=== PATIENT | female | born 1950 | race Caucasian/White ===

== ENCOUNTER 2016-07-14 08:28 | Emergency (ER) | payer MEDICARE, BC ==
[2016-07-14 08:34] VITALS: BP 165/84; PULSE 81; RESP 18; TEMP 97.1
[2016-07-14] MEDS ORDERED: DIPH,PERTUS(ACELL)TETVAC-LF 0.5 ML VIAL IM ONE (08:45)
--- NOTE | 2016-07-14 08:57 | ED ---
Fall HPI - General Chief Complaint: Fall Stated Complaint: left jaw pain fell in parking lot Time Seen by Provider: 07/14/16 08:41 Source: patient, RN notes reviewed Mode of arrival: ambulatory Limitations: no limitations - History of Present Illness Initial Comments: This is a 66-year-old female presents emergency Department with chief complaint of a fall. Patient states that she was walking into the hospital states her foot slipped off the curb causing her to slip and fall. Patient states she has an abrasion to bilateral knees, left hand along the MCP region. Patient also states that she hit the left side of her face on the ground. Patient denies any headache, dizziness, neck pain or back pain. Patient states she did not lose consciousness. Patient states that she just has some swelling, achiness the left side of her face. Patient is not taking any blood thinners. Patient states she is unsure when her last tetanus was. Patient has full range of motion of all extremities. - Related Data Home Medications Medication Instructions Recorded Confirmed Atorvastatin [Lipitor] 20 mg PO HS 07/14/15 07/14/16 Multivitamins, Thera [Multivitamin] 1 tab PO DAILY 07/14/16 07/14/16 Allergies Allergy/AdvReac Type Severity Reaction Status Date / Time Penicillins Allergy Rash/Hives Verified 07/14/16 08:49 Review of Systems ROS Statement: Those systems with pertinent positive or pertinent negative responses have been documented in the HPI. ROS Other: All systems not noted in ROS Statement are negative. Past Medical History Past Medical History: Hyperlipidemia History of Any Multi-Drug Resistant Organisms: None Reported Past Surgical History: Section, Tonsillectomy, Tubal Ligation Past Psychological History: No Psychological Hx Reported Smoking Status: Never smoker Past Alcohol Use History: Occasional Past Drug Use History: None Reported General Exam Limitations: no limitations General appearance: alert, in no apparent distress Head exam: Present: atraumatic, normocephalic, normal inspection Eye exam: Present: normal appearance, PERRL, EOMI. Absent: scleral icterus, conjunctival injection, periorbital swelling ENT exam: Present: normal oropharynx, mucous membranes moist, TM's normal bilaterally, normal external ear exam. Absent: normal exam (Mild swelling noted along the left mandible region) Neck exam: Present: normal inspection, full ROM. Absent: tenderness, meningismus, lymphadenopathy Respiratory exam: Present: normal lung sounds bilaterally. Absent: respiratory distress, wheezes, rales, rhonchi, stridor Cardiovascular Exam: Present: regular rate, normal rhythm, normal heart sounds. Absent: systolic murmur, diastolic murmur, rubs, gallop, clicks Extremities exam: Present: other (Small abrasion noted along the left third and fourth MCP region patient has full range of motion neurovascular intact there is 2 small abrasions one on the right knee, 1 left knee patient has full range of motion of all joints with no difficulty and nontender.) Back exam: Present: full ROM. Absent: tenderness Neurological exam: Present: alert, oriented X3, CN II-XII intact, reflexes normal. Absent: motor sensory deficit Skin exam: Present: warm, dry, intact, normal color. Absent: rash Course Vital Signs 07/14/16 08:31 Temperature 97.1 F L Pulse Rate 81 Respiratory 18 Rate Blood Pressure 165/84 O2 Sat by Pulse 99 Oximetry Medical Decision Making - Medical Decision Making 66-year-old female presented emergency department for fall. Patient x-ray shows no acute abnormality. Patient's tetanus was updated. Patient will be discharged. Disposition Clinical Impression: Fall, Multiple abrasions, Facial contusion Disposition: HOME SELF-CARE Condition: Stable Instructions: Contusion in Adults (ED) Additional Instructions: Please return to the Emergency Department if symptoms worsen or any other concerns. Time of Disposition: 09:32
--- NOTE | 2016-07-14 09:30 | XR ---
EXAMINATION TYPE: XR mandible complete DATE OF EXAM: 07/14/2016 9:18 AM COMPARISON: NONE HISTORY: Pain TECHNIQUE: 5 views of the mandible are submitted FINDINGS: Osseous structures are intact. No definite acute fracture or dislocation. IMPRESSION: 1. No acute fracture or dislocation.
== END 2016-07-14 09:40 | disposition home or self-care (01) ==
LOC: EC 08:28
DX: S00.83XA Contusion of other part of head, initial encounter (principal); S80.212A Abrasion, left knee, initial encounter; S80.211A Abrasion, right knee, initial encounter; E78.5 Hyperlipidemia, unspecified; Z23 Encounter for immunization; Z79.899 Other long term (current) drug therapy; Z88.0 Allergy status to penicillin; W01.0XXA Fall on same level from slipping, tripping and stumbling without subsequent striking against object, initial encounter; Y93.01 Activity, walking, marching and hiking; Y92.481 Parking lot as the place of occurrence of the external cause
CPT/HCPCS: 70110; 90471; 90715; 99283

== ENCOUNTER → 2017-04-24 | Outpatient (CLI) | payer MEDICARE, BC ==
--- NOTE | 2017-04-24 10:51 | MM ---
Reason for exam: additional evaluation requested from prior study. Last mammogram was performed 1 year and 3 months ago. History: Patient is postmenopausal and has history of other cancer at age 59. Took hormonal contraceptives for 7 years. Took estrogen for 1 year. Took progesterone for 1 year. Physical Findings: Nurse did not find any significant physical abnormalities on exam. MG 3D Diag Mammo W/Cad SHI Bilateral CC and MLO view(s) were taken. LM and spot compression CC view(s) were taken of the right breast. Prior study comparison: January 11, 2016, right breast MG 3d diag mammo w/cad RT. July 13, 2015, right breast MG 3d work up w/cad RT. The breast tissue is heterogeneously dense. This may lower the sensitivity of mammography. Small nodular asymmetry centrally on the right CC view disperses on spot 3D images. These results were verbally communicated with the patient and result sheet given to the patient on 04/24/17. ASSESSMENT: Negative, BI-RAD 1 RECOMMENDATION: Routine screening mammogram of both breasts in 1 year.
== END | disposition home or self-care (01) ==
LOC: RADMAMWWP 09:30
PROVIDERS: ATTEND Family Medicine
DX: R92.8 Other abnormal and inconclusive findings on diagnostic imaging of breast (principal)
CPT/HCPCS: G0204; G0279

== ENCOUNTER → 2018-07-03 | Outpatient (CLI) | payer MEDICARE, BC ==
--- NOTE | 2018-07-03 12:11 | BD ---
EXAMINATION TYPE: Axial Bone Density DATE OF EXAM: 07/03/2018 COMPARISON: NONE CLINICAL HISTORY: disorder of bone per order. Postmenopausal female. 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 Bone mineral density as measured about the Lumbar spine is: ----- L1-L4(G/cm2): 1.239 T Score Values are as follows: ----- L2: 0.1 ----- L3: 0.3 ----- L4: 1.1 ----- L1-L4:0.5 Bone mineral density about the R hip (g/cm2): 0.896 Bone mineral density about the L hip (g/cm2): 0.833 T Score values are as follow: -----R Neck: -1.0 -----L Neck: -1.5 -----R Total: -0.3 -----L Total: -0.5 IMPRESSION: Osteopenia (T Score between -2.5 and -1) femoral neck level in the left hip. There is slightly increased risk of fracture and the patient may be considered for treatment. Re-Screen 2-5 years. NOTE: T-SCORE=SD OF THE YOUNG ADULT MEAN.
--- NOTE | 2018-07-05 09:17 | MM ---
Reason for exam: screening (asymptomatic). Last mammogram was performed 1 year and 2 months ago. History: Patient is postmenopausal and has history of other cancer at age 59. Took hormonal contraceptives for 7 years. Took estrogen for 1 year. Took progesterone for 1 year. MG 3D Screening Mammo W/Cad Bilateral CC and MLO view(s) were taken. Prior study comparison: April 24, 2017, bilateral MG 3d diag mammo w/cad SHI. January 11, 2016, right breast MG 3d diag mammo w/cad RT. No significant changes when compared with prior studies. ASSESSMENT: Benign, BI-RAD 2 RECOMMENDATION: Routine screening mammogram of both breasts in 1 year.
== END | disposition home or self-care (01) ==
LOC: RADMAMWWP 10:22
PROVIDERS: ATTEND Family Medicine
DX: Z12.31 Encounter for screening mammogram for malignant neoplasm of breast (principal); M85.88 Other specified disorders of bone density and structure, other site
CPT/HCPCS: 77063; 77067; 77080

== ENCOUNTER → 2019-06-10 | Outpatient (CLI) | payer MEDICARE, BC ==
--- NOTE | 2019-06-10 11:48 | FL ---
MODIFIED SWALLOW / DEGLUTITION STUDY DATE OF EXAM: 06/10/2019 CLINICAL HISTORY: 68-year-old female with dysphasia. Coughing and choking with meals. TECHNIQUE: Deglutition study is performed utilizing thin liquid barium and barium thick pudding. COMPARISON: None. Total fluoroscopy time: 48 seconds. Total images: None. Real-time fluoroscopy support was provided to speech pathology. FINDINGS: The oral and pharyngeal phases show satisfactory initiation and propagation with all modalities teste d. There is no evidence of penetration or aspiration with any modality tested. Very mild vallecular r esidual clears with repeat swallow. IMPRESSION: No penetration or aspiration. Please refer to speech therapist notes for further details if necessary.
== END | disposition home or self-care (01) ==
LOC: RADFLMAIN 10:55
PROVIDERS: ATTEND Family Medicine
DX: R13.10 Dysphagia, unspecified (principal)
CPT/HCPCS: 74230

== ENCOUNTER → 2020-03-16 | Outpatient (CLI) | payer MEDICARE, BC ==
--- NOTE | 2020-03-18 11:13 | MM ---
Reason for exam: screening (asymptomatic). Last mammogram was performed 1 year and 8 months ago. History: Patient is postmenopausal and has history of other cancer at age 59. Took hormonal contraceptives for 7 years. Took estrogen for 1 year. Took progesterone for 1 year. Physical Findings: A clinical breast exam by your physician is recommended on an annual basis and results should be correlated with mammographic findings. MG 3D Screening Mammo W/Cad Bilateral CC and MLO view(s) were taken. Prior study comparison: July 03, 2018, bilateral MG 3d screening mammo w/cad. April 24, 2017, bilateral MG 3d diag mammo w/cad SHI. The breast tissue is extremely dense which could obscure a lesion on mammography. No significant changes when compared with prior studies. ASSESSMENT: Benign, BI-RAD 2 RECOMMENDATION: Routine screening mammogram of both breasts in 1 year.
== END | disposition home or self-care (01) ==
LOC: RADMAMWWP 09:13
PROVIDERS: ATTEND Family Medicine
DX: Z12.31 Encounter for screening mammogram for malignant neoplasm of breast (principal)
CPT/HCPCS: 77063; 77067

== ENCOUNTER → 2021-04-22 | Outpatient (CLI) | payer MEDICARE, BC ==
--- NOTE | 2021-04-26 10:51 | MM ---
Reason for exam: screening (asymptomatic). Last mammogram was performed 1 year and 1 month ago. History: Patient is postmenopausal and has history of other cancer at age 59. Took hormonal contraceptives for 7 years. Took estrogen for 1 year. Took progesterone for 1 year. Physical Findings: A clinical breast exam by your physician is recommended on an annual basis and results should be correlated with mammographic findings. MG 3D Screening Mammo W/Cad Bilateral CC and MLO view(s) were taken. Prior study comparison: March 16, 2020, bilateral MG 3d screening mammo w/cad. July 03, 2018, bilateral MG 3d screening mammo w/cad. The breast tissue is heterogeneously dense. This may lower the sensitivity of mammography. There are benign appearing round calcifications in the right breast. Asymmetric breast tissue anterior right MLO view unchanged from 2019. There is no discrete abnormality. ASSESSMENT: Benign, BI-RAD 2 RECOMMENDATION: Routine screening mammogram of both breasts in 1 year.
== END | disposition home or self-care (01) ==
LOC: RADMAMWWP 13:49
PROVIDERS: ATTEND Family Medicine
DX: Z12.31 Encounter for screening mammogram for malignant neoplasm of breast (principal)
CPT/HCPCS: 77063; 77067

== ENCOUNTER → 2022-05-03 | Outpatient (CLI) | payer MEDICARE, BC ==
--- NOTE | 2022-05-04 08:34 | MM ---
Reason for Exam: Screening (asymptomatic). Last screening mammogram was performed 12 month(s) ago. Patient History: Menarche at age 11. First Full-Term at age 25. Postmenopausal. Other cancer, age 59. Patient used Estrogen for 1 year. Patient used Progesterone for 1 year. Patient used Hormonal Contraceptives for 7 years. Paternal aunt had breast cancer, age 70. Paternal aunt had breast cancer, age 70. Risk Values: Indira 5 year model risk: 2.0%. NCI Lifetime model risk: 5.1%. Prior Study Comparison: 07/03/2018 Bilateral Screening Mammogram, [facility]. 03/16/2020 Bilateral Screening Mammogram, [facility]. 04/22/2021 Bilateral Screening Mammogram, [facility]. Tissue Density: The breast tissue is heterogeneously dense. This may lower the sensitivity of mammography. Findings: Analyzed By CAD. There is no suspicious group of microcalcifications or new suspicious mass in either breast. Overall Assessment: Negative, BI-RAD 1 Management: Screening Mammogram of both breasts in 1 year. A clinical breast exam by your physician is recommended on an annual basis and results should be correlated with mammographic findings. Electronically signed and approved by: Suleman Logan M.D. Radiologis
== END | disposition home or self-care (01) ==
LOC: RADMAMWWP 09:39
PROVIDERS: ATTEND Family Medicine
DX: Z12.31 Encounter for screening mammogram for malignant neoplasm of breast (principal); Z80.3 Family history of malignant neoplasm of breast; Z78.0 Asymptomatic menopausal state
CPT/HCPCS: 77063; 77067

== ENCOUNTER → 2022-05-13 | Outpatient (CLI) | payer MEDICARE, BC ==
--- NOTE | 2022-05-13 14:34 | BD ---
EXAMINATION TYPE: Axial Bone Density DATE OF EXAM: 05/13/2022 COMPARISON: 07-03-2018 CLINICAL HISTORY: 71 years year old Female. ICD-10 CODE: Z78.0 Post menopausal Height: 64IN Weight: 157LB FRAX RISK QUESTIONS: Secondary Osteoporosis: RISK FACTORS HISTORY OF: Active: YES Postmenopausal woman: YES Take estrogen and/or progesterone medications: YES, NONE CURRENT How long: A FEW MONTHS MEDICATIONS: Thyroid Medications: Which medication: Levothyroxine How Lon YEARS Additional Medications: CALCIUM, CHOLESTEROL MED Additional History: EXAM MEASUREMENTS: Bone mineral densitometry was performed using the [employer] System. Bone mineral density as measured about the Lumbar spine is: ----- L1-L4(G/cm2): 1.261 T Score Values are as follows: ----- L1: 0.1 ----- L2: 0.6 ----- L3: 0.3 ----- L4: 1.3 ----- L1-L4: 0.7 Bone mineral density has: Increased 1.9% since study of: 07-03-2018 Bone mineral density about the R hip (g/cm2): 0.965 Bone mineral density about the L hip (g/cm2): 0.930 T Score values are as follows: -----R Neck: -1.0 -----L Neck: -1.6 -----R Total: -0.3 -----L Total: -0.6 Bone mineral density has: Decreased -0.8% since study of: 07-03-2018 FRAX%s: The graph provided illustrates a 11% chance for a major osteoporotic fx and a 2% chance for t he hips probability for fx in 10 years time. IMPRESSION: Osteopenia (T Score between -2.5 and -1) remains present. There is slightly increased risk of fracture and the patient may be considered for treatment. Re-Screen 2-5 years. NOTE: T-SCORE=SD OF THE YOUNG ADULT MEAN.
== END | disposition home or self-care (01) ==
LOC: RADBDWWP 11:14
PROVIDERS: ATTEND Family Medicine
DX: M85.89 Other specified disorders of bone density and structure, multiple sites (principal); I49.9 Cardiac arrhythmia, unspecified; Z78.0 Asymptomatic menopausal state
CPT/HCPCS: 77080; 93005

== ENCOUNTER 2022-07-04 01:49 | Observation (INO) | payer MEDICARE, BC ==
--- NOTE | 2022-07-04 02:33 | ED ---
Chest Pain HPI - General Chief Complaint: Chest Pain Stated Complaint: Chest pain Time Seen by Provider: 07/04/22 02:32 Source: patient, RN notes reviewed, old records reviewed Mode of arrival: ambulatory Limitations: no limitations - History of Present Illness Initial Comments: This is a 72-year-old female to the ER today. She presents today for evaluation of chest pain anterior chest pain and heaviness this episode occurred 3 times last night 3 separate issues with heaviness on her chest and some shortness of breath. Patient has had similar pain in the past but nothing this significant nothing that lasted this long. No travel history no sick contacts no fevers increased fatigue patient does have history of high cholesterol MD Complaint: chest pain -: hour(s) Onset: during rest Pain Location: substernal Pain Radiation: none Severity: moderate Severity scale (1-10): 4 Quality: tightness, heaviness Consistency: intermittent, now resolved Improves With: nothing Worsens With: nothing Anginal Symptoms: dyspnea Other Symptoms: palpitations Treatments Prior to Arrival: none - Related Data Home Medications Medication Instructions Recorded Confirmed Atorvastatin [Lipitor] 20 mg PO HS 07/14/15 07/14/16 Multivitamins, Thera [Multivitamin] 1 tab PO DAILY 07/14/16 07/14/16 Allergies Allergy/AdvReac Type Severity Reaction Status Date / Time Penicillins Allergy Rash/Hives Verified 07/14/16 08:49 Review of Systems ROS Statement: Those systems with pertinent positive or pertinent negative responses have been documented in the HPI. ROS Other: All systems not noted in ROS Statement are negative. EKG Findings - EKG Comments: EKG Findings:: EKG is sinus 76 MN 165 QRS 94 QTC 434 Past Medical History Past Medical History: Hyperlipidemia History of Any Multi-Drug Resistant Organisms: None Reported Past Surgical History: Section, Tonsillectomy, Tubal Ligation Past Psychological History: No Psychological Hx Reported Smoking Status: Never smoker Past Alcohol Use History: Occasional Past Drug Use History: None Reported General Exam Limitations: no limitations General appearance: alert, in no apparent distress Head exam: Present: atraumatic, normocephalic, normal inspection Eye exam: Present: normal appearance, PERRL, EOMI. Absent: scleral icterus, conjunctival injection, periorbital swelling ENT exam: Present: normal exam, mucous membranes moist Neck exam: Present: normal inspection. Absent: tenderness, meningismus, lymphadenopathy Respiratory exam: Present: normal lung sounds bilaterally. Absent: respiratory distress, wheezes, rales, rhonchi, stridor Cardiovascular Exam: Present: regular rate, normal rhythm, normal heart sounds. Absent: systolic murmur, diastolic murmur, rubs, gallop, clicks GI/Abdominal exam: Present: soft, normal bowel sounds. Absent: distended, tenderness, guarding, rebound, rigid Extremities exam: Present: normal inspection, full ROM, normal capillary refill. Absent: tenderness, pedal edema, joint swelling, calf tenderness Back exam: Present: normal inspection Neurological exam: Present: alert, oriented X3, CN II-XII intact Psychiatric exam: Present: normal affect, normal mood Skin exam: Present: warm, dry, intact, normal color. Absent: rash Course Vital Signs 07/04/22 07/04/22 01:50 02:20 Temperature 98.4 F Pulse Rate 85 78 Respiratory 16 Rate Blood Pressure 165/94 O2 Sat by Pulse 96 Oximetry - Reevaluation(s) Reevaluation #1: 07/04/22 03:55 Medical records reviewed Reevaluation #2: 07/04/22 03:55 Patient's chest pain is episodic now currently chest pain-free Reevaluation #3: 07/04/22 03:55 Patient informed results questions answered Reevaluation #4: 07/04/22 03:55 Differential Chest Pain: Stable Angina, Unstable Angina, STEMI, NSTEMI Aortic Dissection, Pneumothorax, Musculoskeletal, Esophageal Spasm GERD, Cholecystitis, Pancreatitis, Zoster, this is not meant to be an all-inclusive list. Reevaluation #5: 07/04/22 03:55 Was pt. sent in by a medical professional or institution? @ -no Did you speak to anyone other than the patient for history? @ -no Did you review nursing and triage notes? @ -agree Were old charts reviewed? @ -prior troponin levels Differential Diagnosis? @ -prior EKG interpreted by me (3pts min.)? @ -[none] X-rays interpreted by me (1pt min.)? @ -yes CT interpreted by me (1pt min.)? @ -[none] U/S interpreted by me (1pt. min.)? @ -[none] What testing was considered but not performed? (CT, X-rays, U/S, labs)? Why? @ -none What meds were considered but not given? Why? @ -[none] Did you discuss the management of the patient with other professionals? @ -no Did you reconcile home meds? @ -[none] Was smoking cessation discussed for >3mins.? @ -[none] Was critical care preformed (if so, how long)? @ -[none] Were there social determinants of health that impacted care today? How? (Homelessness, low income, unemployed, alcoholism, drug addiction, transportation, low edu. Level, literacy, decrease access to med. care, residential, rehab)? @ -no Was there de-escalation of care discussed even if they declined? (Discuss DNR or withdrawal of care, Hospice)? @ -no What co-morbidities impacted this encounter? (DM, HTN, Smoking, COPD, CAD, Cancer, CVA, Hep., AIDS, mental health diagnosis, sleep apnea, morbid obesity)? @ -no Was patient admitted / discharged? @ -admit Undiagnosed new problem with uncertain prognosis? @ -[none] Drug Therapy requiring intensive monitoring for toxicity (Heparin, Nitro, Insulin, Cardizem)? @ -[none] Were any procedures done? @ -[none] Diagnosis/symptom? @ -[default] Acute, or Chronic, or Acute on Chronic? @ -[default] Uncomplicated (without systemic symptoms) or Complicated (systemic symptoms)? @ -[default] Side effects of treatment? @ -[none] Exacerbation, Progression, or Severe Exacerbation] @ -[no] Poses a threat to life or bodily function? @ -[no] - Consultations Consultation #1: Spoke with Dr. Lawler regarding admission he is agreeable Chest Pain MDM - MDM 72 female to the ER for evaluation, patient presents today for evaluation of chest pain. Patient be admitted for chest pain observation history of high cholesterol, chest pain atypical in nature Disposition Clinical Impression: Chest pain Disposition: ADMITTED IP TO THIS HOSP Condition: Undetermined Is patient prescribed a controlled substance at d/c from ED?: No Referrals: Charu Mccoy MD [Primary Care Provider] - 1-2 days Time of Disposition: 03:55
[2022-07-04 02:47] LABS: Basophils % (A) 0 %; Eosinophils # (A) 0.5 k/uL (0-0.7); Eosinophils % (A) 5 %; HCT 41.6 % (34.0-46.0); HGB 14.3 gm/dL (11.4-16.0); Lymphocytes # (A) 2.4 k/uL (1.0-4.8); Lymphocytes % (A) 28 %; MCHC 34.3 g/dL (31.0-37.0); MCV 87.4 fL (80.0-100.0); Mean Platelet Volume 7.7; Monocytes # (A) 0.5 k/uL (0-1.0); Monocytes % (A) 5 %; Neutrophils # (A) 5.1 k/uL (1.3-7.7); Neutrophils % (A) 60 %; Platelet Count 209 k/uL (150-450); RBC 4.76 m/uL (3.80-5.40); RDW 12.5 % (11.5-15.5); WBC 8.6 k/uL (3.8-10.6)
[2022-07-04 03:05] LABS: INR 0.9 (<1.2); Partial Thromboplastin Time 22.4 sec (22.0-30.0); Prothrombin Time 9.5 sec (9.0-12.0)
[2022-07-04 03:08] LABS: ALT 24 U/L (4-34); AST 28 U/L (14-36); African American GFR (CKD) >90 (>60 ml/min/1.73 sqM); Albumin 4.2 g/dL (3.5-5.0); Alkaline Phosphatase 133 U/L (38-126); Anion Gap 5 mmol/L; Blood Urea Nitrogen 16 mg/dL (7-17); Carbon Dioxide 25 mmol/L (22-30); Chloride 108 mmol/L (98-107); Glucose 110 mg/dL (74-99); Lipase 140 U/L (23-300); Magnesium 2.1 mg/dL (1.6-2.3); Non-African American GFR(CKD) 87 (>60 ml/min/1.73 sqM); Potassium 4.3 mmol/L (3.5-5.1); Sodium 138 mmol/L (137-145); Total Bilirubin 0.4 mg/dL (0.2-1.3); Total Protein 6.7 g/dL (6.3-8.2)
--- NOTE | 2022-07-04 03:20 | XR ---
EXAMINATION TYPE: XR chest 2V DATE OF EXAM: 07/04/2022 COMPARISON: NONE HISTORY: Chest pain TECHNIQUE: 2 view FINDINGS: Heart and mediastinum are normal. Lungs are clear. Diaphragm is normal. Bony thorax is norm al. There are chest leads. IMPRESSION: Normal chest.
[2022-07-04] MEDS ORDERED: ASPIRIN 81 MG PO STA (03:53)
[2022-07-04] MEDS ORDERED: MORPHINE SULFATE 4 MG/ML SYRINGE IV PRN (03:53)
[2022-07-04] MEDS ORDERED: NITROGLYCERIN SL TABS 0.4 MG TAB SUBLINGUAL PRN (03:53)
[2022-07-04] MEDS ORDERED: SODIUM CHLORIDE 0.9% 1,000 ML IV SCH (04:00)
[2022-07-04 08:43] VITALS: RESP 16
[2022-07-04] MEDS ORDERED: LOSARTAN-HCTZ 50-12.5 MG 1 EACH TAB PO SCH (09:00)
[2022-07-04] MEDS ORDERED: ATORVASTATIN 80 MG TAB PO SCH (09:00)
[2022-07-04] MEDS ORDERED: MELOXICAM 7.5 MG TAB PO PRN (09:07)
[2022-07-04] MEDS ORDERED: NON FORMULARY DRUG (Vitamin D3(Unknown Dose) 1 TAB) PO SCH (09:15)
[2022-07-04] MEDS ORDERED: LEVOTHYROXINE 100 MCG TAB PO SCH (09:15)
--- NOTE | 2022-07-04 09:19 | P.CRDCN ---
History of Present Illness History of present illness: HISTORY OF PRESENT ILLNESS: This is a 72-year-old female with a past medical history significant for hyperlipidemia and hypothyroidism. Patient does not follow with a data analytics specialist. We have been asked to see the patient in consultation for chest pain. Patient examined at the bedside. Patient states yesterday she was sitting in her chair watching television around 11:00 at night. She began to have pain in the middle of her chest and her left upper chest. She states it felt like a lot of pressure on her chest. She denied any radiation of the pain. She states she was not short of breath but felt nervous due to the pain. She states the pain eased up and then came back. This happened again for a third time so she decided to come to the emergency room. She states each episode lasted for roughly 5-10 minutes. She states she has had no further episodes of chest pain since she's been here. The patient does report having a stress test approximately 15 years ago secondary to having abnormalities on her EKG. The patient's blood pressure has been elevated since admission with a systolic in the 160s. * EKG reveals sinus mechanism with nonspecific ST-T wave changes * Chest xray negative for acute process * Laboratory data: WBC 8.6. Hemoglobin 14.3. Platelet count 209. Sodium 138. Potassium 4.3. BUN 16. Creatinine 0.68. Magnesium 2.1. Troponin negative 3 * Current home cardiac medications include Lipitor 20 mg at night REVIEW OF SYSTEMS: At the time of my exam: CONSTITUTIONAL: Denies fever or chills. HEENT: Denies blurred vision, vision changes, or eye pain. Denies hemoptysis CARDIOVASCULAR: Denies chest pain. Denies orthopnea. Denies PND. Denies palpitations RESPIRATORY: Denies shortness of breath. GASTROINTESTINAL: Denies abdominal pain. Denies nausea or vomiting. HEMATOLOGIC: Denies bleeding disorders. GENITOURINARY: Denies any blood in urine. SKIN: Denies pruitis. Denies rash. PHYSICAL EXAM: VITAL SIGNS: Reviewed. GENERAL: Well-developed in no acute distress. HEENT: Head is normocephalic. Pupils are equal, round. Sclerae anicteric. Mucous membranes of the mouth are moist. Neck supple. No JVD or thyromegaly LUNGS: Respirations even and unlabored. Lungs essentially clear to auscultation bilaterally. HEART: Regular rate and rhythm. S1 and S2 heard. ABDOMEN: Soft. Nondistended. Nontender. EXTREMITIES: Normal range of motion. No clubbing or cyanosis. Peripheral pulses intact. Trace bilateral lower extremity edema NEUROLOGIC: Awake and alert. Oriented x 3. ASSESSMENT: Chest pain, troponins negative 3 Hyperlipidemia Hypertension, systolic blood pressure in the 160s Hypothyroidism PLAN: An acute coronary event has been ruled out Obtain 2-D echo to assess cardiac structure and function Resume home cardiac medications including atorvastatin Begin losartanhydrochlorothiazide 50-12.5 milligrams daily Patient to undergo stress echocardiogram today Further recommendations pending patient's course Nurse practitioner note has been reviewed by physician. Signing provider agrees with the documented findings, assessment, and plan of care. Past Medical History Past Medical History: Hyperlipidemia History of Any Multi-Drug Resistant Organisms: None Reported Past Surgical History: Section, Tonsillectomy, Tubal Ligation Past Psychological History: No Psychological Hx Reported Smoking Status: Never smoker Past Alcohol Use History: Occasional Past Drug Use History: None Reported Medications and Allergies Home Medications Medication Instructions Recorded Confirmed Type Atorvastatin [Lipitor] 20 mg PO HS 07/14/15 07/04/22 History Calcium(Unknown Dose) 1 tab PO DAILY 07/04/22 07/04/22 History Celecoxib [CeleBREX] 200 mg PO DAILY PRN 07/04/22 07/04/22 History Levothyroxine Sodium [Synthroid] 100 mcg PO DAILY 07/04/22 07/04/22 History Vitamin D3(Unknown Dose) 1 tab PO DAILY 07/04/22 07/04/22 History Allergies Allergy/AdvReac Type Severity Reaction Status Date / Time Penicillins Allergy Rash/Hives Verified 07/04/22 06:42 on entire body Physical Exam Vitals: Vital Signs Temp Pulse Resp BP Pulse Ox 07/04/22 03:55 70 16 165/76 99 07/04/22 02:20 78 07/04/22 01:50 98.4 F 85 16 165/94 96 Intake and Output 07/03/22 07/04/22 07/04/22 22:59 06:59 14:59 Other: Weight 70.307 kg Results 07/04/22 02:34 07/04/22 02:34 Cardiac Enzymes 07/04/22 07/04/22 07/04/22 Range/Units 02:34 02:34 06:42 AST 28 (14-36) U/L Troponin I <0.012 <0.012 (0.000-0.034) ng/mL Coagulation 07/04/22 Range/Units 02:34 PT 9.5 (9.0-12.0) sec APTT 22.4 (22.0-30.0) sec CBC 07/04/22 Range/Units 02:34 WBC 8.6 (3.8-10.6) k/uL RBC 4.76 (3.80-5.40) m/uL Hgb 14.3 (11.4-16.0) gm/dL Hct 41.6 (34.0-46.0) % Plt Count 209 (150-450) k/uL Comprehensive Metabolic Panel 07/04/22 Range/Units 02:34 Sodium 138 (137-145) mmol/L Potassium 4.3 (3.5-5.1) mmol/L Chloride 108 H (98-107) mmol/L Carbon Dioxide 25 (22-30) mmol/L BUN 16 (7-17) mg/dL Creatinine 0.68 (0.52-1.04) mg/dL Glucose 110 H (74-99) mg/dL Calcium 9.0 (8.4-10.2) mg/dL AST 28 (14-36) U/L ALT 24 (4-34) U/L Alkaline Phosphatase 133 H (38-126) U/L Total Protein 6.7 (6.3-8.2) g/dL Albumin 4.2 (3.5-5.0) g/dL Current Medications Generic Name Dose Route Start Last Admin Trade Name Freq PRN Reason Stop Dose Admin Aspirin 325 mg 07/05/22 11:00 Aspirin 325 Mg Tab PO DAILY [facility] Atorvastatin Calcium 80 mg 07/04/22 09:00 Atorvastatin 80 Mg Tab PO DAILY [facility] Sodium Chloride 1,000 mls @ 20 mls/hr 07/04/22 04:00 Saline 0.9% IV .Q24H [facility] Morphine Sulfate 4 mg 07/04/22 03:53 Morphine Sulfate 4 Mg/Ml Syringe IV Q4HR PRN Chest Pain Nitroglycerin 0.4 mg 07/04/22 03:53 Nitroglycerin Sl Tabs 0.4 Mg Tab SUBLINGUAL Q5M PRN Chest Pain Intake and Output 07/03/22 07/04/22 07/04/22 22:59 06:59 14:59 Other: Weight 70.307 kg 07/04/22 02:34 07/04/22 02:34
--- NOTE | 2022-07-04 11:34 | CA ---
Transthoracic Echo Report Name: Zulay Watson Age: 72 Gender: F : 1950 Exam Date: 07/04/2022 11:03 Exam Location: [place] [facility] Ht (in): 64 Wt (lb): 155 Ordering Physician: Lydia Young Attending/Referring Phys: [id number], Hector Tax Appraiser Maddy Murillo RDCS Procedure CPT: Indications: LV function Cardiac Hx: Technical Quality: Fair Contrast 1: Total Dose (mL): Contrast 2: Total Dose (mL): MEASUREMENTS (Male / Female) Normal Values 2D ECHO LV Diastolic Diameter PLAX 4.0 cm 4.2 - 5.9 / 3.9 - 5.3 cm LV Systolic Diameter PLAX 1.6 cm IVS Diastolic Thickness 1.1 cm 0.6 - 1.0 / 0.6 - 0.9 cm LVPW Diastolic Thickness 1.1 cm 0.6 - 1.0 / 0.6 - 0.9 cm LV Relative Wall Thickness 0.6 RV Internal Dim ED PLAX 3.0 cm LA Volume 42.3 cm??? 18 - 58 / 22 - 52 cm??? M-MODE Aortic Root Diameter MM 2.9 cm LA Systolic Diameter MM 4.4 cm LA Ao Ratio MM 1.5 AV Cusp Separation MM 1.6 cm DOPPLER AV Peak Velocity 123.2 cm/s AV Peak Gradient 6.1 mmHg AV Mean Velocity 87.8 cm/s AV Mean Gradient 3.4 mmHg AV Velocity Time Integral 26.4 cm LVOT Peak Velocity 96.0 cm/s LVOT Peak Gradient 3.7 mmHg MV Area PHT 3.8 cm??? Mitral E Point Velocity 93.0 cm/s Mitral A Point Velocity 96.5 cm/s Mitral E to A Ratio 1.0 MV Deceleration Time 198.1 ms MV E' Velocity 7.9 cm/s Mitral E to MV E' Ratio 11.8 FINDINGS Left Ventricle Mildly increased septal wall thickness. Mildly increased posterior wall thickness. Normal left ventricular systolic function with no obvious regional wall motion abnormalities. Left ventricular cavity size normal. Normal left ventricular diastolic filling pattern. Left ventricular ejection fraction is estimated at 55-60 %. Right Ventricle Normal right ventricular size and function. Right ventricular systolic pressure within normal limits. Right Atrium Normal right atrial size. Left Atrium Normal left atrial size. Mitral Valve Structurally normal mitral valve. No mitral stenosis, regurgitation or prolapse. Aortic Valve Trileaflet aortic valve. No aortic valve stenosis or regurgitation. Tricuspid Valve Structurally normal tricuspid valve. Trace to mild tricuspid regurgitation. Pulmonic Valve Trace pulmonic regurgitation. Pericardium No pericardial effusion. Aorta Normal size aortic root and proximal ascending aorta. CONCLUSIONS Normal left ventricular dimension and systolic function Previewed by: Dr. Braden Patton MD (Electronically Signed) Final Date: 04 July 2022 11:33
--- NOTE | 2022-07-04 11:58 | CA ---
Stress Echo Report Zulay Watson Age: 72 Gender: F : 1950 Exam Date: 07/04/2022 10:50 Exam Location: [place] [facility] Ht (in): 64 Wt (lb): 150 Ordering Physician: Lydia Young Referring Physician: [id number] Beverage Specialist: PALMER Technologist Procedure CPT: Indication: CP ICD-9 Codes: Rhythm: Patient History: CHEST PAIN, PALPITATIONS, ELEVATED CHOLESTEROL LEVELS, FAMILY HX OF HEART DISEASE Cardiac Medications: Medications in past 24 hours: Contrast: Stress Results Protocol: Julito Total dose(mL): Exercise Duration (min:sec): 7:[address] Depression (mm): Angina Score: Kan Score: METS: 9.1 Resting HR: 100 Resting BP: 168 / 85 Peak HR: 142 Peak BP: 210 / 87 Max Predicted HR: 147 97 % Max Predicted HR Target HR: 125 Double Product: [id number] Stress Summary: BP Response: Reason for Termination: MAX EXERTION/TARGET HR Cardiac Symptoms: NO SYMPTOMS ECG Analysis Resting ECG: Stress ECG: Arrhythmia: Echo Analysis Resting Echo: Peak Echo Analysis: MEASUREMENTS (Male/Female) Normal Values CONCLUSIONS Good exercise tolerance Normal EKG in response to exercise Normal echocardiogram in response to exercise Dr. Braden Patton MD (Electronically Signed) Final Date: 04 July 2022 11:57
[2022-07-04 14:51] VITALS: BP 132/79; PULSE 81; TEMP 98.4
--- NOTE | 2022-07-04 16:09 | P.HPIM ---
History of Present Illness H&P Date: 07/04/22 Chief Complaint: Chest pain Zulay Watson, is a 72 years old female patient of Dr Mccoy who presented to [facility] emergency room with a chief complaint of chest pain. She was evaluated in the emergency room vital examination on presentation revealed a temperature of 98.4 pulse 85 respiration 16 blood pressure 165/94 pulse ox 96% on room air Laboratory data revealed a white blood count of 8.6 hemoglobin 14.3 platelet count 209 sodium 138 potassium 4.3 chloride 108 CO2 25 BUN 16 creatinine 0.68 troponin level less than 0.012 Testing in the emergency room revealed EKG revealed sinus rhythm with incomplete right bundle branch block, chest x-ray did not reveal any acute abnormality Patient was admitted to medical floor for further evaluation and treatment Past medical history is significant for history of hyperlipidemia, history of hypothyroidism, history of osteoarthritis, she states she never smoked On review of systems patient is alert and oriented 3 in no apparent distress there is no fever or chills no headache or dizziness no chest pain at this time no shortness of breath no cough no nausea or vomiting no abdominal pain no diarrhea no blood in the stools no burning with urination no frequency or urgency and no hematuria Past Medical History Past Medical History: Hyperlipidemia History of Any Multi-Drug Resistant Organisms: None Reported Past Surgical History: Section, Tonsillectomy, Tubal Ligation Past Psychological History: No Psychological Hx Reported Smoking Status: Never smoker Past Alcohol Use History: Occasional Past Drug Use History: None Reported Medications and Allergies Home Medications Medication Instructions Recorded Confirmed Type Atorvastatin [Lipitor] 20 mg PO HS 07/14/15 07/04/22 History Calcium(Unknown Dose) 1 tab PO DAILY 07/04/22 07/04/22 History Celecoxib [CeleBREX] 200 mg PO DAILY PRN 07/04/22 07/04/22 History Levothyroxine Sodium [Synthroid] 100 mcg PO DAILY 07/04/22 07/04/22 History Losartan-Hctz 50-12.5 mg [Hyzaar 1 each PO DAILY #90 tab 07/04/22 Rx 50-12.5] Vitamin D3(Unknown Dose) 1 tab PO DAILY 07/04/22 07/04/22 History Allergies Allergy/AdvReac Type Severity Reaction Status Date / Time Penicillins Allergy Rash/Hives Verified 07/04/22 06:42 on entire body Physical Exam Vitals: Vital Signs Temp Pulse Pulse Resp BP BP Pulse Ox 07/04/22 08:21 97.8 F 67 16 135/81 96 07/04/22 07:30 98.3 F 61 18 140/81 97 07/04/22 03:55 70 16 165/76 99 07/04/22 02:20 78 07/04/22 01:50 98.4 F 85 16 165/94 96 Intake and Output 07/03/22 07/04/22 07/04/22 22:59 06:59 14:59 Other: Weight 70.307 kg In general patient is alert and oriented x 3 in no distress HEENT head normocephalic and atraumatic Neck is supple no JVD no goiter no lymphadenopathy no carotid bruit Chest examination is clear to auscultation no crackles no wheezing Cardiac exam reveals regular heart sounds S1 and S2 no gallops no murmurs Abdomen is soft nontender no organomegaly with normal bowel sounds Extremity exam reveals no edema no cyanosis or clubbing Neurological examination reveals no gross focal deficits Results CBC & Chem 7: 07/04/22 02:34 07/04/22 02:34 Labs: Abnormal Lab Results - Last 24 Hours (Table) 07/04/22 Range/Units 02:34 Chloride 108 H (98-107) mmol/L Glucose 110 H (74-99) mg/dL Alkaline Phosphatase 133 H (38-126) U/L Assessment and Plan Plan: Episode of chest pain, on presentation, resolved Underlying history of hyperlipidemia Underlying history of hypothyroidism Underlying history of osteoarthritis At this time patient is admitted to telemetry floor Home medications reviewed and reordered Serial EKGs and cardiac enzymes ordered Cardiology consultation was requested Will follow closely
--- NOTE | 2022-07-04 16:12 | P.DS ---
Providers Date of admission: 07/04/22 03:53 Expected date of discharge: 07/04/22 Attending physician: Duy Awan Primary care physician: Charu Mccoy [facility] Course: Diagnosis on discharge: Episode of chest pain, on presentation, resolved. Elevated blood pressures during this admission patient was started on Cozaar/hydrochlorothiazide Underlying history of hyperlipidemia Underlying history of hypothyroidism Underlying history of osteoarthritis Hospital course: Zulay Watson, is a 72 years old female patient of Dr Mccoy who presented to [facility] emergency room with a chief complaint of chest pain. She was evaluated in the emergency room vital examination on presentation revealed a temperature of 98.4 pulse 85 respiration 16 blood pressure 165/94 pulse ox 96% on room air Laboratory data revealed a white blood count of 8.6 hemoglobin 14.3 platelet count 209 sodium 138 potassium 4.3 chloride 108 CO2 25 BUN 16 creatinine 0.68 troponin level less than 0.012 Testing in the emergency room revealed EKG revealed sinus rhythm with incomplete right bundle branch block, chest x-ray did not reveal any acute abnormality Patient was admitted to medical floor for further evaluation and treatment Past medical history is significant for history of hyperlipidemia, history of hypothyroidism, history of osteoarthritis, she states she never smoked On review of systems patient is alert and oriented 3 in no apparent distress there is no fever or chills no headache or dizziness no chest pain at this time no shortness of breath no cough no nausea or vomiting no abdominal pain no diarrhea no blood in the stools no burning with urination no frequency or urgency and no hematuria On 07/04/2022 patient was seen and examined on the telemetry floor she is alert and oriented 3 in no apparent distress she was evaluated by cardiology and underwent echocardiogram and a stress echo, results were within normal limits patient was reevaluated by cardiology and was cleared for discharge, Cozaar/hydrochlorothiazide 50/12.5 mg was added to her medication regimen, prescription given to patient, she will follow-up with her primary care physician Dr. Mccoy within one week Patient Condition at Discharge: Undetermined Plan - Discharge Summary Discharge Rx Participant: No New Discharge Prescriptions: New Losartan-Hctz 50-12.5 mg [Hyzaar 50-12.5] 1 each PO DAILY #90 tab Continue Atorvastatin [Lipitor] 20 mg PO HS Celecoxib [CeleBREX] 200 mg PO DAILY PRN PRN Reason: Pain Calcium(Unknown Dose) 1 tab PO DAILY Levothyroxine Sodium [Synthroid] 100 mcg PO DAILY Vitamin D3(Unknown Dose) 1 tab PO DAILY Discharge Medication List Atorvastatin [Lipitor] 20 mg PO HS 07/14/15 [History] Calcium(Unknown Dose) 1 tab PO DAILY 07/04/22 [History] Celecoxib [CeleBREX] 200 mg PO DAILY PRN 07/04/22 [History] Levothyroxine Sodium [Synthroid] 100 mcg PO DAILY 07/04/22 [History] Losartan-Hctz 50-12.5 mg [Hyzaar 50-12.5] 1 each PO DAILY #90 tab 07/04/22 [Rx] Vitamin D3(Unknown Dose) 1 tab PO DAILY 07/04/22 [History] Follow up Appointment(s)/Referral(s): Charu Mccoy MD [Primary Care Provider] - 1-2 days Braden Patton MD [STAFF PHYSICIAN] - 1 Week
[2022-07-04] MEDS ORDERED: ATORVASTATIN 20 MG TAB PO SCH (21:00)
[2022-07-05] MEDS ORDERED: CALCIUM PO SCH (09:00)
[2022-07-05] MEDS ORDERED: ASPIRIN 325 MG TAB PO SCH (11:00)
[2022-07-06] MEDS ORDERED: ASPIRIN 81 MG PO SCH (09:00)
== END 2022-07-04 16:12 | disposition home or self-care (01) ==
LOC: EC 01:49 → 6NMEDSUR 03:53
PROVIDERS: ADMIT Internal Medicine; ATTEND Internal Medicine
DX: R07.89 Other chest pain (principal); I10 Essential (primary) hypertension; E78.5 Hyperlipidemia, unspecified; E78.00 Pure hypercholesterolemia, unspecified; E03.9 Hypothyroidism, unspecified; M19.90 Unspecified osteoarthritis, unspecified site; I45.10 Unspecified right bundle-branch block; R00.2 Palpitations; Z79.1 Long term (current) use of non-steroidal anti-inflammatories (NSAID); Z79.890 Hormone replacement therapy; Z79.899 Other long term (current) drug therapy; Z88.0 Allergy status to penicillin; Z98.891 History of uterine scar from previous surgery; Z98.51 Tubal ligation status; Z98.890 Other specified postprocedural states
CPT/HCPCS: 99285; 36415; 93005; 93306; 93351; 83880; 80053; 83690; 83735; 84484; 85025; 85610; 85730; 83036; 71046; G0378

== ENCOUNTER 2023-04-07 12:37 | Day surgery (SDC) | payer MEDICARE, BC ==
[2023-04-05 12:04] VITALS: BMI 26.6
[~2023-04-07 12:37] MED LIST: LACTATED RINGERS 1,000 ML IV SCH
[2023-04-07] MEDS ORDERED: LIDOCAINE 1% (10MG/ML) FOR IV START INTRADERMA ONE (13:34)
[2023-04-07 13:45] VITALS: TEMP 98.4
[2023-04-07] MEDS ORDERED: PROPOFOL 10 MG/ML 20 ML VIAL IV ONE (14:10)
--- NOTE | 2023-04-07 14:27 | P.PCN ---
Date of Procedure: 04/07/23 Procedure(s) Performed: BRIEF HISTORY: Patient is a 72-year-old pleasant white female scheduled for an elective colonoscopy as a part of evaluation of prior history of colon polyps PROCEDURE PERFORMED: Colonoscopy with snare polypectomy. PREOPERATIVE DIAGNOSIS: History of colon polyps. IV sedation per Anesthesia. PROCEDURE: After informed consent was obtained, the patient, was brought into the endoscopy unit. IV sedation was administered by Anesthesia under continuous monitoring. Digital rectal examination was normal. Initially the Olympus CF-160 flexible video colonoscope was then inserted in the rectum, gradually advanced into the cecum without any difficulty. Careful examination was performed as the scope was gradually being withdrawn. Ileocecal valve and the appendiceal orifice were visualized and appeared normal. Prep was excellent. Mucosa of the cecum, ascending colon, transverse colon, appeared normal. In the descending colon there was a 6 mm a polyp that was removed by snare polypectomy. In the sigmoid: There was a 3 mm polyp that was removed by snare polypectomy. Rest of the descending colon, sigmoid colon, and rectum appeared normal. Scattered diffuse diverticulosis. Retroflexion was performed in the rectum and no lesions were seen. The patient tolerated the procedure well. Impression: 6 mm descending colon polyp serous posterior polypectomy 3 mm; sigmoid polyp status post-polypectomy. Scattered diffuse diverticulosis RECOMMENDATIONS: Findings of this examination were discussed with the patient as well as her family. She was advised to follow with the biopsy results. If the biopsies adenoma she can have a repeat colonoscopy in 5 years.
[2023-04-07 15:16] VITALS: BP 143/67; PULSE 78; RESP 18
== END 2023-04-07 15:07 | disposition home or self-care (01) ==
LOC: ORWHC2ENDO 12:37
PROVIDERS: ATTEND Internal Medicine Gastroenterology
DX: Z12.11 Encounter for screening for malignant neoplasm of colon (principal); K63.5 Polyp of colon; K57.30 Diverticulosis of large intestine without perforation or abscess without bleeding; I10 Essential (primary) hypertension; E78.5 Hyperlipidemia, unspecified; E03.9 Hypothyroidism, unspecified; K21.9 Gastro-esophageal reflux disease without esophagitis; Z88.0 Allergy status to penicillin; Z79.890 Hormone replacement therapy; Z79.899 Other long term (current) drug therapy; Z86.010 Personal history of colon polyps
CPT/HCPCS: 88305; 45385; J2704

== ENCOUNTER → 2023-06-14 | Outpatient (CLI) | payer MEDICARE, BC ==
--- NOTE | 2023-06-16 16:09 | MM ---
Reason for Exam: Screening (asymptomatic). Last mammogram was performed 1 year(s) and 2 month(s) ago. Patient History: Menarche at age 11. First Full-Term at age 25. Postmenopausal. Other cancer, age 59. Patient used Estrogen for 1 year. Patient used Progesterone for 1 year. Patient used Hormonal Contraceptives for 7 years. Paternal aunt had breast cancer, age 70. Paternal aunt had breast cancer, age 70. Risk Values: Indira 5 year model risk: 2.0%. NCI Lifetime model risk: 4.8%. Prior Study Comparison: 03/16/2020 Bilateral Screening Mammogram, [facility]. 04/22/2021 Bilateral Screening Mammogram, [facility]. 05/03/2022 Bilateral MG 3D screening mammo w/cad, [facility]. Tissue Density: The breast tissue is extremely dense which could obscure a lesion on mammography. Findings: Analyzed By CAD. Appears symmetrical and stable. No significant interval change is evident. Benign calcifications bilaterally. No suspicious groups of microcalcifications, spiculated or lobular masses, architectural distortion or other secondary signs of malignancy are mammographically apparent. Overall Assessment: Benign, BI-RAD 2 Management: Screening Mammogram of both breasts in 1 year. A negative mammogram report should not preclude additional follow up of suspicious palpable abnormalities. Patient should continue monthly self breast exam. A clinical breast exam by your physician is recommended on an annual basis and results should be correlated with mammographic findings. Electronically signed and approved by: Louie Boswell D.O. Radiologis
== END | disposition home or self-care (01) ==
LOC: RADMAMWWP 11:03
PROVIDERS: ATTEND Family Medicine
DX: Z12.31 Encounter for screening mammogram for malignant neoplasm of breast (principal); Z78.0 Asymptomatic menopausal state; Z80.3 Family history of malignant neoplasm of breast
CPT/HCPCS: 77063; 77067

== ENCOUNTER → 2024-06-17 | Outpatient (CLI) | payer MEDICARE, BC ==
--- NOTE | 2024-06-17 13:49 | BD ---
EXAMINATION TYPE: Axial Bone Density DATE OF EXAM: 06/17/2024 CLINICAL HISTORY: 73 years old Female. ICD-10 CODE: Z78.0 MENOPAUSAL STATE , Additional History: Height: 63.5 Weight: 155 FRAX RISK QUESTIONS: Family History (Parent hip fracture): no History of Fracture in Adulthood: no Secondary Osteoporosis: no Rheumatoid Arthritis: no Current Tobacco Use: no RISK FACTORS HISTORY OF: Surgery to Spine/Hip(right/left)/Wrist (right/left): no MEDICATIONS: Thyroid Medications: yes Which medication: Synthroid How Lon+ years Osteoporosis Medications: no EXAM MEASUREMENTS: Bone mineral densitometry was performed using the [employer] System. Bone mineral density as measured about the Lumbar spine is: ----- L1-L4(G/cm2): 1.239 T Score Values are as follows: ----- L1: 0.1 ----- L2: 0.5 ----- L3: 0.0 ----- L4: 1.0 ----- L1-L4: 0.5 Z Score Values are as follows: ----- L1: 1.7 ----- L2: 2.1 ----- L3: 1.6 ----- L4: 2.5 ----- L1-L4: 2.1 Bone mineral density has: Decreased -2.5% since study of: 05/13/2022 Bone mineral density about the R hip (g/cm2): 0.980 Bone mineral density about the L hip (g/cm2): 0.938 T Score values are as follows: -----R Neck: -1.0 -----L Neck: -1.4 -----R Total: -0.2 -----L Total: -0.6 Z Score values are as follows: -----R Neck: 0.8 -----L Neck: 0.4 -----R Total: 1.4 -----L Total: 1.0 Bone mineral density has: Increased 1.2% since study of: 05/13/2022 FRAX%s: The graph provided illustrates a 10.8% chance for a major osteoporotic fx and a 2.0% chance f or the hips probability for fx in 10 years time. IMPRESSION: Osteopenia (T Score between -2.5 and -1) remains present. There is slightly increased risk of fracture and the patient may be considered for treatment. Re-Screen 2-5 years. NOTE: T-SCORE=SD OF THE YOUNG ADULT MEAN. [facility], , 06/17/2024 1:47 PM
--- NOTE | 2024-07-03 07:57 | MM ---
EXAM: MG 3D screening mammo w/cad DATE OF EXAM: 06/17/2024 12:55 PM COMPARISON STUDIES: 04/22/2021 Bilateral Screening Mammogram, [facility]. 05/03/2022 Bilateral MG 3D screening mammo w/cad, [facility]. 06/14/2023 Bilateral MG 3D screening mammo w/cad, [facility]. PATIENT HISTORY: Menarche at age 11. First Full-Term at age 25. Postmenopausal. Other cancer, age 59. Patient used Estrogen for 1 year. Patient used Progesterone for 1 year. Patient used Hormonal Contraceptives for 7 years. Paternal aunt had breast cancer, age 70. Paternal aunt had breast cancer, age 70. RISK CALCULATION: Indira 5 year model risk: 2.0%. NCI Lifetime model risk: 4.5%. TISSUE DENSITY: The breasts are heterogeneously dense, which may obscure small masses. FINDINGS: A few benign-appearing calcifications bilaterally are redemonstrated. There is no suspicious new group of microcalcifications or new suspicious mass in either breast. ASSESSMENT: 2 - Benign RECOMMENDATION: 1. Screening Mammogram Bilateral in 1 Year . COMMENTS: . Patient should continue monthly self-breast exams. A clinical breast exam by your physician is recommended on an annual basis. This exam should not preclude additional follow-up of suspicious palpable abnormalities. Note on Indira scores and lifetime risk: 1. A Indira score greater than 3% is considered moderate risk. If this is the case, consider specialist referral to assess eligibility for a risk reducing agent. 2. If overall lifetime risk for the development of breast cancer is 20% or higher, the patient may qualify for future screening with alternating mammogram and breast MRI. [facility], , 06/17/2024 12:56 PM [place]
== END | disposition home or self-care (01) ==
LOC: RADMAMWWP 12:34
PROVIDERS: ATTEND Family Medicine
DX: Z12.31 Encounter for screening mammogram for malignant neoplasm of breast (principal); M85.89 Other specified disorders of bone density and structure, multiple sites; R92.333 Mammographic heterogeneous density, bilateral breasts; Z78.0 Asymptomatic menopausal state; Z80.3 Family history of malignant neoplasm of breast
CPT/HCPCS: 77063; 77067; 77080